=== PATIENT | female | born 1960 | race Caucasian/White ===

== ENCOUNTER 2017-03-16 19:09 | Inpatient (IN) ==
[~2017-03-16 19:09] MED LIST: ENOXAPARIN 40 MG/0.4 ML SYRINGE SUBCUT SCH; VANCOMYCIN INJ 1,250 MG in SODIUM CHLORIDE 0.9% 250 ML IV SCH
[2017-03-16] MEDS ORDERED: ACETAMINOPHEN 500 MG TABLET PO STA (20:41)
[2017-03-16] MEDS ORDERED: cefTRIAXone 1,000 MG in SODIUM CHLORIDE 0.9% 100 ML IV STA (20:41)
[2017-03-16] MEDS ORDERED: SODIUM CHLORIDE 0.9% 500 ML IV STA (20:41)
--- NOTE | 2017-03-16 20:43 | Emergency Department Note ---
Bob Parsons Mantricia, am scribing for, and in the presence of, John Cid MD 20:33. Palak Parsons Charles R, MD, personally performed the services described in this documentation, ascribed by Beatriz Rojas in my presence, and it is both accurate and complete 043 . Arrival - Arrival Chief Complaint: Urogenital - Female Stated Complaint: leg pain ED Nursing Triage Note: burning during urination, fever, leg pain Mode of Arrival: Stretcher Limitations: No Limitations Source: Patient Time Seen by Provider: 03/16/17 19:52 - History of Present Illness HPI Narrative: Pt is a 56 y/o white female arriving to ED by EMS as a transfer from [place] with c/o burning urination that onset today. She also c/o fever and LLE pain that onset a week ago. 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 Pt is able to ambulate but only with pain. She states that she stopped smoking in 1992. No other complaints were reported to ED. Onset (ago): hour(s) Consistency: constant Severity: mild Allergies/Adverse Reactions: Allergies Allergy/AdvReac Type Severity Reaction Status Date / Time No Known Allergies Allergy Unverified 03/16/17 21:24 Home Medications: Home Medications Medication Instructions Recorded Confirmed Type Insulin Detemir [Levemir] 42 unit SUBCUT BID 03/16/17 03/16/17 History glipiZIDE [Glipizide Xl] 5 mg PO BID 03/16/17 03/16/17 History Review of System - Review of System 12 point system: reviewed and no additional remarkable complaints except as stated - Review of System Constitutional: Present: fever. Absent: chills, diaphoresis Head/Ears/Nose/Throat: Absent: earache Respiratory: Absent: cough Cardiovascular: Absent: chest pain Gastrointestinal: Absent: abdominal pain, nausea, vomiting, diarrhea Genitourinary female: Present: dysuria. Absent: abnormal menses Musculoskeletal: Present: leg pain (LLE). 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) Endocrine: History of: Diabetes Mellitus (IDDM) Other: History of: Miscellaneous Medical Problems (obeseity) - Surgical History Abdominal Surgeries: Surgical HX of: Appendectomy, Cholecystectomy Reproductive Surgeries: Surgical HX of;: Hysterectomy - Social History Smoking Status: Never smoker Frequency of Alcohol Use: None Type of Drug Use: None Exam Vital Signs: Vital Signs Temperature 98.6 F 03/17/17 00:00 Pulse Rate 85 03/17/17 00:00 Respiratory Rate 20 03/17/17 00:00 Blood Pressure 132/73 03/17/17 00:00 O2 Sat by Pulse Oximetry 96 03/17/17 00:00 - General General appearance: alert, in no apparent distress - Head Head exam: Present: atraumatic, normocephalic, normal inspection - Eye Eye exam: Present: normal appearance, PERRL, EOMI - ENT ENT exam: Present: normal exam, normal oropharynx, mucous membranes moist, TM's normal bilaterally, normal external ear exam - Neck Neck exam: Present: normal inspection, full ROM, trachea midline. Absent: tenderness - Chest Chest inspection: Present: normal inspection, symmetric chest wall rise. Absent : tenderness - Respiratory Respiratory exam: Present: normal lung sounds bilaterally - Cardiovascular Cardiovascular exam: Present: normal rhythm, tachycardia, normal heart sounds - Abdominal Exam Abdominal exam: Present: soft, normal bowel sounds. Absent: distention, tenderness, guarding, rebound - Extremities Exam Extremities exam: Present: normal inspection, full ROM, tenderness (LLE- groin to leg), normal capillary refill. Absent: pedal edema - Back Exam Back exam: Present: normal inspection, full ROM, other (LLE swelling). Absent: tenderness - Neurological Exam Neurological exam: Present: alert, oriented X3, CN II-XII intact, normal gait, reflexes normal - Psychiatric Psychiatric exam: Present: normal affect, normal mood - Skin Skin exam: Present: warm, dry, intact, normal color Course - Consultations Consultation #1: Hospitalist will admit patient Results - Labs CBC & BMP: 03/16/17 19:38 03/16/17 19:38 Lab Results: I have reviewed the patients labs Labs: All results from previous facility reviewed - Diagnostic Findings Procedure: Ultrasound: image reviewed by me (No DVT left lower extremity) Disposition Clinical Impression: Fever, Pain of left lower extremity, Possible developing cellulitis left lowe, Uncontrolled diabetes mellitus Case discussed with: patient, patient's family Disposition: Still a Patient Condition: Stable
[2017-03-16 20:47] LABS: Basophils % 0.3 % (0.0-0.8); Eosinophils # 0.1 10*3/uL (0.0-0.87); Eosinophils % 0.9 % (0.00-10.9); Hematocrit 29.5 VOL% (35.7-47.0); Hemoglobin 10.5 GM/DL (12.0-16.0); Immature Granulocytes % 0.5 %; Immature Granulocytes Absolute 0.03 #; Lymphocytes # 0.6 10*3/uL (1.4-4.0); Lymphocytes % 11.1 % (21.3-54.2); Mean Corpuscular HGB Conc 35.6 GM/DL (32-36); Mean Corpuscular Hemoglobin 28 PG (27-34); Mean Corpuscular Volume 77.4 FL (87-102); Mean Platelet Volume 9.6 FL (9.6-12.0); Monocytes # 0.3 10*3/uL (0.11-0.8); Monocytes % 5.1 % (1.7-12.7); Neutrophils # 4.7 10*3/uL (1.4-7.4); Neutrophils % 82.1 % (38.7-73.9); Platelet Count 148 T/CUMM (130-400); Red Blood Count 3.81 MC/CUMM (3.8-5.5); Red Cell Distribution Width 13.9 % (9.3-17.3); White Blood Count 5.7 T/CUMM (4-12)
[2017-03-16 20:54] LABS: Apearance,Urine CLEAR (Clear); Bacteria,Urine Many /HPF (Few); Bilirubin,Urine Negative (Negative); Blood, Urine Moderate mg/dL (Negative); Glucose,Urine (UA) 150 mg/dL (Negative); Ketones,Urine Negative (Negative); Nitrite,Urine Negative (Negative); Protein,Urine >=500 MG/DL; RBC,Urine 1 /HPF (0-4); Squamous Epithelial Cell,Urine Occasional /HPF (0-10); Urine Color Yellow (Yellow); Urine Specific Gravity 1.009 (1.001-1.035); Urine Urobilinogen < 2.0 EU/DL (0.2-1.0); WBC,Urine 5 /HPF (0-6)
[2017-03-16] MEDS ORDERED: cefTRIAXone 1,000 MG VIAL ONE (21:00)
[2017-03-16] MEDS ORDERED: ACETAMINOPHEN 500 MG TABLET ONE (21:00)
[2017-03-16 21:05] LABS: Albumin 2.8 G/DL (3.4-5.0); Bilirubin,Total 0.5 MG/DL (0.2-1.0); Calcium 8.3 MG/DL (8.5-10.1); Osmolality,Calculated 284.7 MOS/KG (273-304); Potassium 4.1 MMOL/L (3.5-5.1); Total Protein 6.2 G/DL (6.4-8.3)
[2017-03-16 21:08] LABS: Band Neutrophils 1 % (0-10); Lymphocytes 12 % (20-55); Segmented Neutrophils 83 % (50-85); Total Cells Counted 100
[2017-03-16 21:09] LABS: Hypochromasia Slight; Microcytosis Slight; Platelet Estimate Adequate
[2017-03-16] MEDS ORDERED: VANCOMYCIN INJ 1,000 MG in SODIUM CHLORIDE 0.9% 250 ML IV STA (21:21)
[2017-03-16 21:53] LABS: Sedimentation Rate-Westergren 80 MM/HR (0-30)
[2017-03-16] MEDS ORDERED: HYDROmorphone 2 MG/1 ML VIAL IV STA (22:02)
[2017-03-16] MEDS ORDERED: SODIUM CHLORIDE 0.9% 250 ML IV ONE (22:05)
[2017-03-16] MEDS ORDERED: VANCOMYCIN 1,000 MG VIAL ONE (22:05)
[2017-03-16] MEDS ORDERED: HYDROmorphone 2 MG/1 ML VIAL ONE (22:05)
[2017-03-16] MEDS ORDERED: GLUCAGON 1 MG VIAL IM PRN (22:14)
[2017-03-16] MEDS ORDERED: DEXTROSE 50% 25 GM/50 ML SYRINGE IV PRN (22:14)
--- NOTE | 2017-03-16 22:24 | Hospitalist History & Physical ---
Assessment and Plan (1) Cellulitis Status: Acute Current Visit: Yes (2) Urinary tract infection Status: Acute Current Visit: Yes (3) Fever Status: Acute Current Visit: Yes (4) Pain of left lower extremity Status: Acute Current Visit: Yes (5) Uncontrolled diabetes mellitus Status: Acute Assessment and plan: Our plan for this patient will be admitting her to our service. She seems like an early cellulitis. Going to treat with Rocephin and vancomycin. This should cover any urinary tract infection that can be cultured out. If she is still this tender in the morning I would consider a surgery consult for possible necrotizing fasciitis. But that depends on the physical exam in the morning. Going to cut her Lantus dose because I am unsure of how much she will be eating. And sliding scale as needed. Recheck labs in the morning. Current Visit: Yes History of Present Illness Chief complaint: Leg pain fever pain with urination History of present illness: Ms. Chaney is a 56 year old female with past medical history significant for diabetes and blindness who comes in to our hospital as a transfer from outside facility. Patient went to the an outside facility complaining of pain with urination in left leg pain. She reports that she feels knots in her leg. She said that her symptoms started approximately 1 week ago and also she complains about some intermittent back pain. She has been told lately that her color was not looking good in that she seemed to be pale. I was consulted for admission. 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) Endocrine: History of: Diabetes Mellitus (IDDM) Other: History of: Miscellaneous Medical Problems (obeseity) - Surgical History Abdominal Surgeries: Surgical HX of: Appendectomy, Cholecystectomy Reproductive Surgeries: Surgical HX of;: Hysterectomy - Family History Family History: Reports;: Family Cancer, Additional Family History Additional Family History: Brain tumor spinal stenosis Parkinson's hypertension and diabetes - Social History Smoking Status: Never smoker Frequency of Alcohol Use: None Type of Drug Use: None 12 point system: reviewed and no additional remarkable complaints except as stated Exam - Constitutional Vitals: Period Temp Pulse Resp BP Sys/Chavez Pulse Ox Last 24 Hr 99.4 F-99.4 F 99-99 17-17 173-173/90-90 98-98 - General General appearance: alert, in no apparent distress - Head Head exam: Present: atraumatic, normocephalic, normal inspection - Eye Eye exam: Present: normal appearance, PERRL, EOMI - ENT ENT exam: Present: normal exam, normal oropharynx, mucous membranes moist, TM's normal bilaterally, normal external ear exam - Neck Neck exam: Present: normal inspection, full ROM, trachea midline - Chest Chest inspection: Present: normal inspection, symmetric chest wall rise. - Respiratory Respiratory exam: Present: normal lung sounds bilaterally - Cardiovascular Cardiovascular exam: Present: normal rhythm, tachycardia, normal heart sounds - Abdominal Exam Abdominal exam: Present: soft, normal bowel sounds. Absent: distention, tenderness, guarding, rebound - Extremities Exam Extremities exam: Present: normal inspection, full ROM, tenderness (LLE- groin to leg) feels warm to the touch - Back Exam Back exam: Present: normal inspection, - Neurological Exam Neurological exam: Present: alert, oriented X3, CN II-XII intact - Psychiatric Psychiatric exam: Present: normal affect, normal mood - Skin Skin exam: Present: warm, dry, intact, normal color Results - Labs CBC & BMP: 03/16/17 19:38 03/16/17 19:38
[2017-03-16] MEDS ORDERED: LABETALOL 20 MG/4 ML SYRINGE IV PRN (23:22)
[2017-03-17 06:10] LABS: Basophils % 0.5 % (0.0-0.8); Eosinophils # 0.1 10*3/uL (0.0-0.87); Eosinophils % 1.5 % (0.00-10.9); Hematocrit 29.1 VOL% (35.7-47.0); Hemoglobin 10.1 GM/DL (12.0-16.0); Immature Granulocytes % 0.5 %; Immature Granulocytes Absolute 0.02 #; Lymphocytes # 0.5 10*3/uL (1.4-4.0); Lymphocytes % 12.9 % (21.3-54.2); Mean Corpuscular HGB Conc 34.7 GM/DL (32-36); Mean Corpuscular Hemoglobin 27 PG (27-34); Mean Platelet Volume 9.5 FL (9.6-12.0); Monocytes # 0.4 10*3/uL (0.11-0.8); Monocytes % 9.3 % (1.7-12.7); Neutrophils % 75.3 % (38.7-73.9); Platelet Count 135 T/CUMM (130-400); Red Blood Count 3.78 MC/CUMM (3.8-5.5)
[2017-03-17] MEDS ORDERED: ONDANSETRON 4 MG/2 ML VIAL IV PRN (06:14)
[2017-03-17 06:45] LABS: Albumin 2.5 G/DL (3.4-5.0); Bilirubin,Total 0.9 MG/DL (0.2-1.0); Calcium 8.3 MG/DL (8.5-10.1); Osmolality,Calculated 284.3 MOS/KG (273-304); Potassium 4.1 MMOL/L (3.5-5.1); Total Protein 5.6 G/DL (6.4-8.3)
--- NOTE | 2017-03-17 06:47 | Ultrasound Report ---
US venous doppler LE LT Indication: Pain and swelling. Comparison: None. Technique: Grayscale, spectral, and color Doppler interrogation of the left lower extremity veins was performed. Augmentation and compression was performed. Findings: Grayscale, color Doppler, and pulsed Doppler evaluation of the veins of the left lower extremity demonstrates no evidence of deep venous thrombosis. IMPRESSION: No evidence of deep venous thrombosis in the left lower extremity. PROCEDURE INTERPRETED AT [facility] DEPARTMENT OF RADIOLOGY Final Report Signed by: Dr Wyatt Escamilla
[2017-03-17 07:29] LABS: Band Neutrophils 1 % (0-10); Eosinophils 3 % (0-10); Hypochromasia Slight; Lymphocytes 15 % (20-55); Segmented Neutrophils 76 % (50-85); Total Cells Counted 100
[2017-03-17 07:30] LABS: Platelet Estimate Decreased; Target Cells Slight
--- NOTE | 2017-03-17 07:35 | XRay Report ---
XR chest 1V Indication: SOB/fever Comparison: Chest x-ray dated February 01, 2012 Technique: Single frontal view of the chest. Findings: The cardiomediastinal silhouette is stable in configuration. No focal consolidation, pleural effusion, or pneumothorax. Visualized osseous and surrounding soft tissue structures appear grossly unchanged. IMPRESSION: Stable chest x-ray without acute cardiopulmonary process demonstrated. PROCEDURE INTERPRETED AT [facility] DEPARTMENT OF RADIOLOGY Final Report Signed by: Dr Wyatt Escamilla
[2017-03-17] MEDS: INSULIN REGULAR 100 UNIT/ML SUBCUT SCH ×4 (08:37→21:09)
[2017-03-17] MEDS ORDERED: INSULIN GLARGINE 100 UNIT/ML SUBCUT ONE (08:59)
[2017-03-17] MEDS: INSULIN GLARGINE 100 UNIT/ML SUBCUT SCH ×2 (09:00→21:08)
[2017-03-17] MEDS: ENOXAPARIN 40 MG/0.4 ML SYRINGE SUBCUT SCH (09:00)
[2017-03-17] MEDS ORDERED: INSULIN DETEMIR 100 UNIT/ML SUBCUT SCH (09:00)
[2017-03-17] MEDS: VANCOMYCIN INJ 1,250 MG in SODIUM CHLORIDE 0.9% 250 ML IV SCH ×2 (09:01→21:39)
[2017-03-17] MEDS ORDERED: VANCOMYCIN INJ 1,000 MG in SODIUM CHLORIDE 0.9% 250 ML IV SCH (11:00)
--- NOTE | 2017-03-17 11:02 | Hospitalist Progress Note ---
Assessment and Plan - Time spent with patient Time spent with patient: Less than 30 minutes (1) Cellulitis Status: Acute Assessment and plan: Developing cellulitis. Continue IV Vancomycin and Rocephin. Current Visit: Yes (2) Pain of left lower extremity Status: Acute Assessment and plan: As above Current Visit: Yes (3) Uncontrolled diabetes mellitus Status: Acute Assessment and plan: Continue sliding-scale insulin per protocol. Serum glucose improved since admission. Current Visit: Yes (4) Urinary tract infection Status: Acute Assessment and plan: Continue IV Rocephin. Current Visit: Yes Hospitalist: Subjective Interval history: Patient seen and examined today. She is awake, alert and oriented resting comfortably in bed on exam. She reports continued headache and moderate nausea which was relieved by Zofran. She still complains of left lower extremity pain thought to be related to cellulitis. We will continue IV antibiotics. Exam - Constitutional Vitals: Period Temp Pulse Resp BP Sys/Chavez Pulse Ox Last 24 Hr 97.3 F-99.4 F 82-99 16-20 128-173/65-90 96-98 Exam: General: No acute distress Heart: RRR; no gallops, murmurs, rubs, clicks Lungs: CTA bilaterally; no wheezes, rales, rhonchi Abdomen: NBS, soft, nontender, no masses Extremities: LLE pain; no cyanosis, edema, clubbing Neuro: AAOx3 Results - Labs CBC & BMP: 03/17/17 05:22 03/17/17 05:22 Lab Results: I have reviewed the past 24 hour labs
[2017-03-17] MEDS ORDERED: GLUCAGON 1 MG VIAL IM PRN (15:45)
[2017-03-17] MEDS ORDERED: DEXTROSE 50% 25 GM/50 ML VIAL IV PRN (15:45)
[2017-03-17] MEDS ORDERED: cefTRIAXone 1,000 MG in SODIUM CHLORIDE 0.9% 100 ML IV SCH (20:00)
[2017-03-18] MEDS: INSULIN REGULAR 100 UNIT/ML SUBCUT SCH ×2 (08:39→12:16)
[2017-03-18] MEDS: ENOXAPARIN 40 MG/0.4 ML SYRINGE SUBCUT SCH (09:10)
[2017-03-18] MEDS: INSULIN GLARGINE 100 UNIT/ML SUBCUT SCH (09:10)
[2017-03-18] MEDS: VANCOMYCIN INJ 1,250 MG in SODIUM CHLORIDE 0.9% 250 ML IV SCH (09:11)
--- NOTE | 2017-03-18 11:07 | General Surgery Consult Note ---
Assessment and Plan - Time spent with patient Time spent with patient: Greater than 30 minutes (1) Right sciatic nerve pain Status: Acute Assessment and plan: 56-year-old white female with history of diabetes admitted by the hospitalist service with what they thought was an early cellulitis with fever to the left leg. Patient was found to have a UTI which was most likely the source of her fever. Upon physical exam it appears the patient most likely has left hip bursitis with IT band irritation on the left. She also has sciatica on the right. We will go ahead and order lumbar, pelvic, hip, and knee x-rays to rule out any bony involvement. Consult physical therapy for evaluation and treatment. If this is sciatica and bursitis, would recommend anti- inflammatories, heat, and appropriate stretching per physical therapy. This can be done on an outpatient basis. Did not see any signs of cellulitis or abscess. Dr. Bui will see and examined patient and further recommendations to follow. Current Visit: Yes (2) Pain of left lower extremity Status: Acute Current Visit: Yes History of Present Illness Chief complaint: Left leg pain History of present illness: Ms. Chaney is a 56 year old white female with history of diabetes admitted by hospitalist service on 03/16/2017 with left lower extremity pain and cellulitis with fever. She was also found to have a urinary tract infection which is being treated with IV antibiotics. Dr. Bui was consulted for possible abscess due to her complaints of pain in the hip and lateral thigh. Upon exam patient has no signs of cellulitis or abscess. She does have extreme tenderness over the bursa of the left hip and down the IT band distribution. She also complains of pain in the right sciatic region. She denies headache, dysphasia, chest pain, shortness of breath, abdominal pain, or lower extremity edema. She does state she has pain in the left leg when she goes up and down stairs and she has pain on the low back when sitting. She has normal sensation in bilateral lower extremities. Strength is 5/5 bilaterally. Her knee and hip are both stable. She does have pain along the left hip and lateral thigh with adduction of the left hip. Patient is afebrile and her vital signs are stable and her labs are basically normal. She does have a urinary tract infection that is sensitive to most antibiotics. Dr. Bui was consulted for further evaluation. 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) Endocrine: History of: Diabetes Mellitus (IDDM) Genitourinary: History of: Problems (Burning urination) Other: History of: Miscellaneous Medical Problems (obeseity) - Surgical History Abdominal Surgeries: Surgical HX of: Appendectomy, Cholecystectomy Reproductive Surgeries: Surgical HX of;: Hysterectomy - Family History Family History: Reports;: Family Cancer, Additional Family History - Social History Smoking Status: Never smoker Frequency of Alcohol Use: None Type of Drug Use: None Review of systems: A complete 10 system review of systems was obtained and pertinent positives and negatives per HPI Exam - Constitutional Vitals: Period Temp Pulse Resp BP Sys/Chavez Pulse Ox Last 24 Hr 96.6 F-98.7 F 69-78 16-18 117-146/59-78 95-97 Exam: Constitutional System: No distress. No tremulousness. Head: Normocephalic, atraumatic. Ears, Nose and Throat System: No evidence of Otitis or Mastoiditis. No epistaxis or discharge Eyes System: Pupils equal, round, and reactive. Extraocular muscles intact. Neck: Supple, without adenopathy, No jugular venous distention. No thyromegaly, neck mass, or prior surgery apparent. Respiratory System: Chest clear to auscultation. Cardiovascular System: Heart with regular rate and rhythm. No murmur. GI System: Abdomen soft, nontender. Normo active bowel sounds present. Musculoskeletal System: limbs with no pedal edema. Full distal pulses. Equal sensation bilaterally, 5/5 strength bilaterally, pinpoint tenderness over left hip bursa extending down the IT band to the left knee, tenderness to palpation over right sciatic area, no radiation to the hip or leg. Neurological System: No discernable sensory deficit. No aphasia Psychiatric System: Conversation is rational Results - Labs CBC & BMP: 03/17/17 05:22 03/17/17 05:22 Lab Results: I have reviewed the past 24 hour labs - Diagnostic Findings Procedure: X-ray: pending
--- NOTE | 2017-03-18 11:33 | XRay Report ---
XR knee 2V LT Indication: Knee pain Comparison: None Technique: Frontal and lateral views of the left knee Findings: Minimal degenerative change of the knee. No acute fracture or dislocation demonstrated. IMPRESSION: As above. PROCEDURE INTERPRETED AT [facility] DEPARTMENT OF RADIOLOGY Final Report Signed by: Dr Wyatt Escamilla
--- NOTE | 2017-03-18 11:38 | XRay Report ---
XR hip 2v w pelvis LT Indication: Buttock and hip pain Comparison: None Technique: Single frontal view of the pelvis as well as frontal and frog-leg lateral views of the left hip Findings: No acute fracture or dislocation demonstrated. There is a small calcific density adjacent to the greater trochanter which may reflect calcific tendinosis. IMPRESSION: As above. PROCEDURE INTERPRETED AT [facility] DEPARTMENT OF RADIOLOGY Final Report Signed by: Dr Wyatt Escamilla
--- NOTE | 2017-03-18 11:41 | XRay Report ---
XR lumbar spine AP/LAT Indication: Buttock and hip pain Comparison: None Technique: Frontal, lateral, and coned-down L5-S1 views of the lumbosacral spine. Findings: Vertebral body heights and alignment are maintained. Mild marginal osteophyte formation noted at several levels. Mild posterior facet arthropathy of the lower lumbar spine. Atherosclerotic calcifications demonstrated. Surgical clips noted within the right upper quadrant of the abdomen. IMPRESSION: Mild degenerative change of the lumbar spine as detailed above. PROCEDURE INTERPRETED AT [facility] DEPARTMENT OF RADIOLOGY Final Report Signed by: Dr Wyatt Escamilla
[2017-03-18 12:06] VITALS: BP 141/70
--- NOTE | 2017-03-18 13:19 | Discharge Summary ---
Hospital Course - Hospital Course Hospital Course: 56-year-old white female with history of diabetes and blindness admitted by the hospitalist service on 03/16/2017 with fever and left leg pain. She was admitted with what was thought to be a cellulitis of her left leg. She ended up having a urinary tract infection which would explain her fevers. She is feeling much better with several doses of antibiotics. She still continued to complain of left leg pain so Dr. Bui from general surgery was consulted. She was found to most likely have a left hip bursitis with inflammation of her iliotibial band as well. She also has some right sciatica. Patient was started on scheduled anti-inflammatory medications and will set her up with physical therapy outpatient. Patient will be given 5 more days of p.o. antibiotics for her urinary tract infection. Complete discharge instructions were given. Care coordination, chart review, and completed discharge paperwork took approximately 32 minutes. - Time spent with patient Time with patient DS: Greater than 30 minutes Diagnosis - Discharge Diagnosis (1) Right sciatic nerve pain Status: Acute (2) Pain of left lower extremity Status: Acute (3) Urinary tract infection Status: Resolved Discharge Plan - Discharge Data Disposition: Disch To Home/Self Care Condition at Discharge: Stable Discharge Diet: diabetic diet Activity: as per physical therapy Driving: no restrictions Contact your physician if you experience:: fever over 101 - Discharge Medications New Ciprofloxacin Tab [Cipro Tab] 250 mg PO BID #10 tablet Naproxen [Naprosyn Tab] 250 mg PO TID #120 tablet Continue Insulin Detemir [Levemir] 42 unit SUBCUT BID glipiZIDE [Glipizide Xl] 5 mg PO BID - Follow Up or Referral Follow Up: PCP,family [Other] - 1 Week physical therapy, outpatient [Other] - 03/19/17 (evaluate and treat diagnosis: left hip trochanteric bursitis, ITB pain, right sciatica) - Forms/Instructions Exam - Constitutional Vitals: Period Temp Pulse Resp BP Sys/Chavez Pulse Ox Last 24 Hr 96.6 F-98.7 F 69-78 16-18 117-145/60-78 95-97 Exam: 56-year-old white female, no acute distress, alert and oriented Chest clear CV regular rate and rhythm Abdomen soft and nontender Extremities tender to palpation left hip over greater trochanter and down iliotibial band distribution, tender to palpation right sciatic region with no radiation Discharge Results Procedures and tests throughout hospitalization: Pending Orders 03/16/17 21:48 Blood Culture Stat 03/19/17 08:30 Vancomycin,Trough Timed Labs on day of discharge: Labs from last 24 hours 03/18/17 03/18/17 03/17/17 11:43 07:04 20:54 POC Glucose 189 H 135 H 180 H 03/17/17 16:10 POC Glucose 153 H Preliminary micro results at discharge 03/16/17 21:48 Blood Culture - Preliminary Blood No growth at 1 day 03/16/17 21:33 Blood Culture - Preliminary Blood No growth at 1 day DS: Provider Date of admission: 03/16/17 22:10 Primary care physician: . No PCP Attending physician on admission: Cesar Galindo MD Consults: 03/16/17 22:19 Consult to Pharmacy [CONS] Routine Reason for Pharmacy Consult: Dose/Manage Vancomycin 03/18/17 08:39 Consult to Physician [CONS] Routine Comment: ? Cellulitis Consulting Provider: Arsh Bui Person Notified: aware Date Notified: 03/18/17 Time Notified: 10:03 03/18/17 10:00 Consult to Physical Therapy [CONS] Routine Reason for Physical Therapy: Evaluate and Treat Consult Comment: left hip bursitis?ITB prob? right sciatica? home today Discharging clinician: HOPE De La Vega Expected date of discharge: 03/18/17
[2017-03-18] MEDS: NAPROXEN 250 MG TABLET PO SCH ×2 (13:24→14:02)
== END 2017-03-18 16:00 | disposition home or self-care (01) | DRG 558 ==
LOC: EDBD → EDUNIT# → N.ED 19:09 → SUATTDRO 22:10 → N.EDINP 22:10 → N.5E 22:44
PROVIDERS: ADMIT Internal Medicine; ATTEND Internal Medicine

== ENCOUNTER 2019-06-29 16:24 | Inpatient (IN) ==
[2019-06-29] MEDS ORDERED: MORPHINE 4 MG/1 ML VIAL IV PRN (21:04)
[2019-06-29] MEDS ORDERED: NICOTINE 21 MG/24 HR PATCH TRANSDERM PRN (21:04)
[2019-06-29] MEDS ORDERED: BISACODYL 5 MG TABLET PO PRN (21:04)
[2019-06-29] MEDS ORDERED: diphenhydrAMINE CAP 25 MG CAPSULE PO PRN (21:04)
[2019-06-29] MEDS ORDERED: ACETAMINOPHEN 325 MG TABLET PO PRN (21:04)
[2019-06-29] MEDS ORDERED: ONDANSETRON 4 MG/2 ML VIAL IV PRN (21:04)
[2019-06-29] MEDS ORDERED: GLUCAGON 1 MG VIAL IM PRN (21:09)
[2019-06-29] MEDS ORDERED: DEXTROSE 50% 25 GM/50 ML VIAL IV PRN (21:09)
[2019-06-29] MEDS: SODIUM CHLORIDE 0.9% 1,000 ML IV SCH (21:25)
[2019-06-29 21:59] LABS: Basophils # 0.1 10*3/uL (0.0-0.2); Basophils % 0.8 % (0.0-0.8); Eosinophils # 0.9 10*3/uL (0.0-0.87); Eosinophils % 11.3 % (0.00-10.9); Hematocrit 27.4 VOL% (35.7-47.0); Hemoglobin 9.1 GM/DL (12.0-16.0); Immature Granulocytes % 0.4 %; Immature Granulocytes Absolute 0.03 #; Lymphocytes # 1.9 10*3/uL (1.4-4.0); Lymphocytes % 24.1 % (21.3-54.2); Mean Corpuscular HGB Conc 33.2 GM/DL (32-36); Mean Corpuscular Volume 82.8 FL (87-102); Mean Platelet Volume 9.5 FL (9.6-12.0); Monocytes % 6.5 % (1.7-12.7); Neutrophils % 56.9 % (38.7-73.9); Platelet Count 164 T/CUMM (130-400); Red Blood Count 3.31 MC/CUMM (3.8-5.5); Red Cell Distribution Width 13.4 % (9.3-17.3); White Blood Count 7.9 T/CUMM (4-12)
[2019-06-29 22:23] LABS: Alanine Aminotransferase 17 U/L (13-56); Albumin 2.7 G/DL (3.4-5.0); Alkaline Phosphatase 102 U/L (45-117); Aspartate Amino Transferase 15 U/L (0-37); Bilirubin,Total < 0.39 MG/DL (0.2-1.0); Blood Urea Nitrogen 31 MG/DL (7-18); Calcium 8.2 MG/DL (8.5-10.1); Glucose 160 MG/DL (74-106); HDL Cholesterol 54 MG/DL (40-60); Osmolality,Calculated 288.4 MOS/KG (273-304); Risk Ratio 4.26; Total Protein 6.1 G/DL (6.4-8.3); Triglycerides 259 MG/DL (2-150); VLDL CHOLESTEROL 51.8 MG/DL
[2019-06-29 22:25] LABS: Estimated Glom Filtration Rate 0 ML/MIN
[2019-06-29 22:26] LABS: Troponin I < 0.015 NG/ML (0.00-0.045)
[2019-06-29 22:36] LABS: Eosinophils 18 % (0-10); Lymphocytes 21 % (20-55); Platelet Estimate Normal; Segmented Neutrophils 60 % (50-85); Total Cells Counted 100
[2019-06-29 22:37] LABS: Hypochromasia 2+; Microcytosis 2+; Reactive Lymphocytes 1+
[2019-06-30 00:06] LABS: Apearance,Urine Slightly Hazy (Clear); Bacteria,Urine Few /HPF (Few); Bilirubin,Urine Negative (Negative); Blood, Urine Small mg/dL (Negative); Glucose,Urine (UA) Negative (Negative); Hyaline Casts,Urine 1 /LPF (0-3); Ketones,Urine Negative (Negative); Mucus,Urine Occasional /LPF (Occasional); Nitrite,Urine Negative (Negative); Protein,Urine >=500 MG/DL; RBC,Urine 2 /HPF (0-4); Squamous Epithelial Cell,Urine Occasional /HPF (0-10); Urine Color Yellow (Yellow); Urine Specific Gravity 1.012 (1.001-1.035); Urine Urobilinogen < 2.0 EU/DL (0.2-1.0); WBC,Urine 30 /HPF (0-6)
[2019-06-30] MEDS: INSULIN REGULAR 100 UNIT/ML SUBCUT SCH ×4 (08:54→21:11)
[2019-06-30] MEDS: ASPIRIN 325 MG TABLET PO SCH (08:55)
[2019-06-30] MEDS ORDERED: ENOXAPARIN 40 MG/0.4 ML SYRINGE SUBCUT SCH (12:00)
[2019-06-30] MEDS ORDERED: cefTRIAXone 1,000 MG in SYRINGE 1 EACH IV SCH (12:00)
[2019-06-30] MEDS: SODIUM CHLORIDE 0.9% 1,000 ML IV SCH ×2 (12:03→22:30)
[2019-06-30] MEDS: ALUMINUM/MAGNES/SIMETH MAX STR 30 ML UDCUP PO PRN (17:31)
[2019-06-30] MEDS ORDERED: ATORVASTATIN 40 MG TABLET PO SCH (21:00)
[2019-06-30] MEDS ORDERED: SIMVASTATIN 10 MG TABLET PO SCH (21:00)
[2019-07-01] MEDS: ALUMINUM/MAGNES/SIMETH MAX STR 30 ML UDCUP PO PRN ×2 (01:07→11:19)
[2019-07-01] MEDS: SODIUM CHLORIDE 0.9% 1,000 ML IV SCH (01:40)
[2019-07-01 04:51] LABS: Basophils # 0.1 10*3/uL (0.0-0.2); Basophils % 0.8 % (0.0-0.8); Eosinophils # 0.7 10*3/uL (0.0-0.87); Eosinophils % 11.7 % (0.00-10.9); Hematocrit 24.3 VOL% (35.7-47.0); Hemoglobin 8.5 GM/DL (12.0-16.0); Immature Granulocytes % 0.5 %; Immature Granulocytes Absolute 0.03 #; Lymphocytes # 1.7 10*3/uL (1.4-4.0); Lymphocytes % 28.2 % (21.3-54.2); Mean Corpuscular Volume 80.5 FL (87-102); Mean Platelet Volume 9.4 FL (9.6-12.0); Neutrophils % 51.8 % (38.7-73.9); Platelet Count 155 T/CUMM (130-400); Red Blood Count 3.02 MC/CUMM (3.8-5.5); Red Cell Distribution Width 13.2 % (9.3-17.3); White Blood Count 6.1 T/CUMM (4-12)
[2019-07-01 05:14] LABS: Eosinophils 15 % (0-10); Hypochromasia 1+; Lymphocytes 27 % (20-55); Platelet Estimate Adequate; Segmented Neutrophils 56 % (50-85); Total Cells Counted 100
[2019-07-01 05:15] LABS: Microcytosis 1+
[2019-07-01 05:19] LABS: Calcium 8.5 MG/DL (8.5-10.1); Osmolality,Calculated 291.8 MOS/KG (273-304)
[2019-07-01] MEDS: ASPIRIN 325 MG TABLET PO SCH (09:00)
[2019-07-01] MEDS: INSULIN REGULAR 100 UNIT/ML SUBCUT SCH (09:20)
[2019-07-01 09:43] VITALS: BP 176/80
== END 2019-07-01 11:45 | DRG 65 ==
LOC: INTOOBSV 20:13 → N.5E 20:13
PROVIDERS: ADMIT Internal Medicine; ATTEND Family Medicine